=== PATIENT | female | born 2000 | race Caucasian/White ===

== ENCOUNTER 2022-09-04 15:23 | Outpatient (RCR) | payer BC ==
[~2022-09-04 15:23] MED LIST: ELIQUIS 5MG PO
== END 2022-09-05 | disposition home or self-care (01) ==
LOC: COL.CR
DX: Z48.812 Encounter for surgical aftercare following surgery on the circulatory system (principal); Z94.1 Heart transplant status

== ENCOUNTER 2022-09-29 15:27 | Outpatient (RCR) | payer BC | END 2022-10-06 | disposition home or self-care (01) | LOC: COL.CR | DX: Z48.812 Encounter for surgical aftercare following surgery on the circulatory system (principal); Z94.1 Heart transplant status ==

== ENCOUNTER 2022-11-01 15:34 | Outpatient (RCR) | payer BC | END 2022-11-05 | disposition home or self-care (01) | LOC: COL.CR | DX: Z48.812 Encounter for surgical aftercare following surgery on the circulatory system (principal); Z94.1 Heart transplant status ==

== ENCOUNTER → 2023-07-31 | Outpatient (CLI) | payer BC | LOC: COL.RAD 11:41 | DX: I72.9 Aneurysm of unspecified site (principal); Z94.1 Heart transplant status ==